=== PATIENT | female | born 1965 | race Caucasian/White ===

== ENCOUNTER 2016-07-19 09:45 | Emergency (ER) | payer MEDICAID, OTHER ==
--- NOTE | 2016-07-19 10:26 | EDM.PDOC ---
ED HPI Trauma - General Chief Complaint: Lower Extremity Injury/Pain Stated Complaint: RE-CHECK L FOOT Time Seen by Provider: 07/19/16 10:01 Source: Reports: Patient History Limitations: Reports: No limitations - History of Present Illness INITIAL COMMENTS - FREE TEXT/NARRATIVE: The patient presents with left great toe pain. She fractured her great toe on Monday morning. She has been in a cam walker and she has crutches. She says the pain meds are not working. Occurred When: other (Monday) Occurred Where: home Method of Injury: fall Severity: severe Pain/Injury Location: Reports: lower extremity, left (Great toe) Consciousness: Reports: no loss of consciousness Associated Symptoms: Reports: no other symptoms Allergies/ADRs: Allergies ampicillin Allergy (Verified 07/19/16 09:52) Cannot Remember erythromycin base [Erythromycin Base] Allergy (Verified 07/19/16 09:52) Cannot Remember Penicillins Allergy (Verified 07/19/16 09:52) unknown Home Medications: Ambulatory Orders Aspirin [Halfprin] 81 mg PO DAILY 07/19/16 [Confirmed 07/19/16] HYDROmorphone HCl [Dilaudid] 2 mg PO Q6HR PRN #20 tablet 07/19/16 Hydrocodone/Acetaminophen [Hydrocodon-Acetaminophen 5-325] 5 - 325 mg PO Q6H PRN 07/19/16 [Confirmed 07/19/16] Past Medical History Other HEENT History: Dental History, "My teeth are getting bad." Cardiovascular History: Reports: High cholesterol, [place], Pacemaker, Other (see below) Other Cardiovascular History: [place] five yrs ago. Gastrointestinal History: Reports: Other (see below) Other Gastrointestinal History: Crohn's disease. 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 - Past Surgical History GI Surgical History: Reports: Cholecystectomy, Other (see below) Other GI Surgeries/Procedures: part of intestines removed. Female Surgical History: Reports: section, Hysterectomy Musculoskeletal Surgical History: Reports: Other (see below) Other Musculoskeletal Surgeries/Procedures:: wrist surgery. Social & Family History - Tobacco Use Smoking Status *Q: Current Every Day Smoker Years of Tobacco use: 38 Packs/Tins Daily: 0.5 Second Hand Smoke Exposure: No - Caffeine Use Caffeine Use: Reports: Coffee - Alcohol Use Days Per Week of Alcohol Use: 0 - Recreational Drug Use Recreational Drug Use: No Review of Systems - Review of Systems Review Of Systems: See Below Constitutional: Reports: no symptoms Eyes: Reports: no symptoms Ears: Reports: no symptoms Nose: Reports: no symptoms Mouth/Throat: Reports: no symptoms Respiratory: Reports: No Symptoms Cardiovascular: Reports: no symptoms GI/Abdominal: Reports: No symptoms Genitourinary: Reports: no symptoms Musculoskeletal: Reports: other (Left foot pain and left great toe pain) Trauma Exam - Physical Exam Exam: See Below Exam Limited By: No limitations General Appearance: Reports: alert, no apparent distress Head: Reports: atraumatic, normocephalic Ears: Reports: normal external exam Nose: Reports: normal inspection Respiratory Exam: Reports: no respiratory distress Extremities: Reports: other (Pain upon palpatin to the left foot mostly at the base of the greath toe with ecchymosis and good sensation and capillary refill distally.) Course - Vital Signs Last Recorded V/S: Last Vital Signs Temp 97.0 F 07/19/16 09:45 Pulse 87 07/19/16 09:45 Resp 16 07/19/16 09:45 BP 124/84 07/19/16 09:45 Pulse Ox 100 07/19/16 09:45 - Re-Assessments/Exams Free Text/Narrative Re-Assessment/Exam: 07/19/16 10:24 I will give her some dilaudid. Departure - Departure Time of Disposition: 10:25 Disposition: Home, Self-Care 01 Condition: good Clinical Impression: Fracture of left great toe Qualifiers: Encounter type: subsequent encounter Fracture type: closed Phalanx: proximal Fracture alignment: nondisplaced Fracture healing: with routine healing Qualified Code(s): S92.415D - Nondisplaced fracture of proximal phalanx of left great toe, subsequent encounter for fracture with routine healing Prescriptions: HYDROmorphone HCl [Dilaudid] 2 mg PO Q6HR PRN #20 tablet PRN Reason: Pain Referrals: Cesar Miguel MD [Primary Care Provider] - Forms: ED Department Discharge Additional Instructions: Take the dilaudid for pain. Keep off of your foot. Follow up with your doctor as scheduled.
== END 2016-07-19 10:38 | disposition home or self-care (01) ==
LOC: JD.ED 09:45
CPT/HCPCS: 99283

== ENCOUNTER 2016-08-03 13:12 | Emergency (ER) | payer MEDICAID, OTHER ==
[2016-08-03 13:26] VITALS: BP 132/98
--- NOTE | 2016-08-03 13:38 | EDM.PDOC ---
ED HPI Trauma - General Chief Complaint: Lower Extremity Injury/Pain Stated Complaint: LEFT LEG INJURY RE-CHECK Time Seen by Provider: 08/03/16 13:39 Source: Reports: Patient, RN notes reviewed - History of Present Illness INITIAL COMMENTS - FREE TEXT/NARRATIVE: 51-year-old female presents to the ED for review of fracture left great toe. Initial injury occurred when she stubbed it around the 14 of July. She's been placed in a Cam Walker and has been walking on it. She states over the weekend started to experience increased sharp stabbing burning pain at the fracture site that radiates up the leg. Does not remember stubbing it or injuring it in any way recently.. She is supposed to followup with Dr. Davidson but has yet to see him. Symptom Onset Date: 07/17/16 (Dr. james is identified fracture) Occurred When: other (2 weeks ago) Occurred Where: home Method of Injury: direct blow Severity: moderate (Stubbed her toe.) Pain/Injury Location: Reports: lower extremity, left (Left great toe) Associated Symptoms: Reports: no other symptoms, trouble walking (Currently in a CAM walker) Allergies/ADRs: Allergies ampicillin Allergy (Verified 08/03/16 13:26) Cannot Remember erythromycin base [Erythromycin Base] Allergy (Verified 08/03/16 13:26) Cannot Remember Penicillins Allergy (Verified 08/03/16 13:26) unknown Home Medications: Ambulatory Orders Aspirin [Halfprin] 81 mg PO DAILY 07/19/16 [Confirmed 08/03/16] HYDROmorphone [Dilaudid] 2 mg PO Q6H #16 tablet 08/03/16 Past Medical History HEENT History: Reports: None Other HEENT History: Dental History, "My teeth are getting bad." Cardiovascular History: Reports: High cholesterol, [place], Pacemaker, Other (see below) Other Cardiovascular History: [place] five yrs ago. Gastrointestinal History: Reports: Other (see below) Other Gastrointestinal History: Crohn's disease. 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 - Past Surgical History GI Surgical History: Reports: Cholecystectomy, Other (see below) Other GI Surgeries/Procedures: part of intestines removed. Female Surgical History: Reports: section, Hysterectomy Musculoskeletal Surgical History: Reports: Other (see below) Other Musculoskeletal Surgeries/Procedures:: wrist surgery. Social & Family History - Tobacco Use Smoking Status *Q: Current Every Day Smoker Years of Tobacco use: 35 Packs/Tins Daily: 0.5 Second Hand Smoke Exposure: No - Caffeine Use Caffeine Use: Reports: Coffee - Alcohol Use Days Per Week of Alcohol Use: 0 - Recreational Drug Use Recreational Drug Use: No - Living Situation & Occupation Occupation: unemployed Review of Systems - Review of Systems Review Of Systems: See Below Constitutional: Reports: no symptoms Eyes: Reports: no symptoms Ears: Reports: no symptoms Nose: Reports: no symptoms Mouth/Throat: Reports: no symptoms Respiratory: Reports: No Symptoms Cardiovascular: Reports: no symptoms GI/Abdominal: Reports: No symptoms Genitourinary: Reports: no symptoms Musculoskeletal: Reports: no symptoms Skin: Reports: no symptoms, change in color Psychiatric: Reports: no symptoms Trauma Exam - Physical Exam Exam: See Below Exam Limited By: No limitations General Appearance: Reports: alert, WD/WN, no apparent distress Extremities: Reports: other (There still ecchymoses of the MTP joint of the great toe left side. She is pain on movement of the joint. Sensation appears to be intact. The toe is well aligned.) Neurologic: Reports: alert, normal mood/affect, oriented x 3, other ( Hyperalgesia which appears to be neurogenic pain dorsal toe.) Skin: Reports: Normal color, Warm/dry Course - Vital Signs Last Recorded V/S: Last Vital Signs Temp 36.7 C 08/03/16 13:21 Pulse 93 08/03/16 13:21 Resp 16 08/03/16 13:21 BP 132/98 H 08/03/16 13:21 Pulse Ox 98 08/03/16 13:21 - Orders/Labs/Meds Orders: Active Orders 24 hr Category Date Time Status Toes Great Toe Lt TA [CR] Stat Exams 08/03/16 13:31 Taken - Radiology Interpretation Free Text/Narrative:: 51-year-old female presents to the ED for reevaluation of a fracture of her left great toe. Injury occurred almost 3 weeks ago. Spent in a Cam Walker and crutch walking since that time. Over the weekend she developed increasing pain sharp stabbing burning that shoots up the leg from the great toe. This suggests a neurogenic component to the pain. Therefore it is important that she starts to begin to move the joints to prevent reflex synthetic dystrophy. She is to follow up Dr. Vivar later this week. An x-ray of the toe was carried out and reveals the fracture to be healing very well. There is no malalignment or malposition. She'll continue in cam walker until cc Dr. Vivar.Given Hydromorphone tabs 2mg -- 1/2 to one tablet Q 6hrs prn for pain releif x 16 tabs. Departure - Departure Time of Disposition: 14:01 Disposition: Home, Self-Care 01 Condition: fair Clinical Impression: Fracture of toe, closed Qualifiers: Encounter type: subsequent encounter Toe: great toe Phalanx: proximal Fracture alignment: nondisplaced Laterality: left Fracture healing: with routine healing Qualified Code(s): S92.415D - Nondisplaced fracture of proximal phalanx of left great toe, subsequent encounter for fracture with routine healing Prescriptions: HYDROmorphone [Dilaudid] 2 mg PO Q6H #16 tablet Referrals: Cesar Miguel MD [Primary Care Provider] - Forms: ED Department Discharge Additional Instructions: Evaluation of fracture of proximal phalanx left great toe carried out in the ED. Increasing pain in the area which appears to be neurogenic with sharp shooting stabbing pain. This is a lot as part of the healing phase once the swelling is going down and the nerve starts to act up or come back to life. The x-ray shows that the fracture is healing very well without any displacement. Continue CAM walker boot and pain medication as needed. Followup with Dr. Vivar as planned. Copy of the x-rays provided to you today for Dr. Davidson's review - My Orders Last 24 Hours: My Active Orders 08/03/16 13:31 Toes Great Toe Lt TA [CR] Stat - Assessment/Plan Last 24 Hours: My Active Orders 08/03/16 13:31 Toes Great Toe Lt TA [CR] Stat
--- NOTE | 2016-08-04 11:46 | CR ---
Left first toe: Four views of the left toe were obtained. Slight lucent line seen within the proximal phalanx of the first digit. Findings may represent a subacute nondisplaced fracture. Minimal degenerative change is noted within the first MTP joint. No additional abnormality is seen. Impression: 1. Possible nondisplaced subacute fracture within the proximal phalanx of the first digit. 2. Other incidental finding. Diagnostic code #2
== END 2016-08-03 14:15 | disposition home or self-care (01) ==
LOC: JD.ED 13:12
DX: S92.415D Nondisplaced fracture of proximal phalanx of left great toe, subsequent encounter for fracture with routine healing (principal); E78.00 Pure hypercholesterolemia, unspecified; I25.2 Old myocardial infarction; F41.9 Anxiety disorder, unspecified; Z86.2 Personal history of diseases of the blood and blood-forming organs and certain disorders involving the immune mechanism; F17.210 Nicotine dependence, cigarettes, uncomplicated; Z88.1 Allergy status to other antibiotic agents; Z88.0 Allergy status to penicillin; Z90.49 Acquired absence of other specified parts of digestive tract; Z90.710 Acquired absence of both cervix and uterus; X58.XXXD Exposure to other specified factors, subsequent encounter; Y92.009 Unspecified place in unspecified non-institutional (private) residence as the place of occurrence of the external cause
CPT/HCPCS: 73660-26-TA; 73660-TA; 99283

== ENCOUNTER 2016-08-05 17:48 | Emergency (ER) | payer MEDICAID, OTHER ==
[2016-08-05 17:58] VITALS: BP 123/79
--- NOTE | 2016-08-05 18:44 | EDM.PDOC ---
ED HPI Trauma - General Chief Complaint: Lower Extremity Injury/Pain Stated Complaint: LEFT LEG INJURY Time Seen by Provider: 08/05/16 17:53 Source: Reports: Patient, RN notes reviewed, Other ([facility] [place] P[facility]i) History Limitations: Reports: No limitations - History of Present Illness INITIAL COMMENTS - FREE TEXT/NARRATIVE: The patient states that she fractured her left great toe 07/14/2016. She was seen at the [facility] and placed into a Cam Walker boot. Review of the [place] PMP[place] indicates that the patient was prescribed 10 tablets of [place] 5/[address] Miguel. She states that she subsequently followed up with Dr. Vivar, an Orthopedic Surgeon, on either 07/15/2016 or 07/16/2016. He kept the patient in a Cam Walker boot. The patient was then seen in this ED 07/19/2016, stating that the pain medications that she had been prescribed were not working. The patient was prescribed 20 tablets of Dilaudid 2 mg. The [place] indicates that the patient subsequently received a prescription for 20 tablets of Dilaudid 2 mg on 07/25/2016, and another prescription for 20 tablets of the same on 07/29/2016, both per Dr. Miguel. The patient was then seen in this ED again on 08/03/2016. Radiographs of the toe indicated that the fracture was healing. She was prescribed 16 more tablets of Dilaudid 20 mg. The patient then followed up with Dr. Vivar the following day = yesterday, . He apparently repeated radiographs of the toe and wrapped the toe in addition to keeping the patient in the CAM walker boot. He then prescribed 25 tablets of Dilaudid 2 mg. The patient states that when she went to fill that prescription today, she was told by the pharmacist that Medicare has locked the patient in with Dr. Miguel as a single prescriber for opioids, and since it was after hours, the only way she could get a prescription for an opioid would be if she went to the ED. I [facility], who tells me that Dr. Miguel has recently been locked in as the patient's single prescriber, and that Medicaid therefore rejected the prescription from Dr. Vivar. He stated that the only way that the patient could fill a prescription from a prescriber other than Dr. Miguel would be to get a release from Medicaid, however, Medicaid is closed for the weekend. A prescription from [place] would therefore not be able to be filled. Allergies/ADRs: Allergies ampicillin Allergy (Verified 08/05/16 17:53) Cannot Remember erythromycin base [Erythromycin Base] Allergy (Verified 08/05/16 17:53) Cannot Remember Penicillins Allergy (Verified 08/05/16 17:53) unknown Home Medications: Ambulatory Orders Aspirin [Halfprin] 81 mg PO DAILY 07/19/16 [Confirmed 08/05/16] HYDROmorphone [Dilaudid] 2 mg PO Q6H #16 tablet 08/03/16 [Confirmed 08/05/16] Past Medical History Other HEENT History: Dental History, "My teeth are getting bad." Cardiovascular History: Reports: High cholesterol Gastrointestinal History: Reports: Inflammatory bowel disease (Crohn disease) Genitourinary History: Reports: Renal calculus 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 Gastric pacer.) Female Surgical History: Reports: section (x 3), Hysterectomy Musculoskeletal Surgical History: Reports: ORIF (left wrist), Shoulder surgery ( left, open) Social & Family History - Tobacco Use Smoking Status *Q: Current Every Day Smoker Years of Tobacco use: 30 Packs/Tins Daily: 0.5 Packs/Tins Daily Comment: Down from 1 ppd - Caffeine Use Caffeine Use: Reports: Coffee - Alcohol Use Alcohol Use History: No Days Per Week of Alcohol Use: 0 - Recreational Drug Use Recreational Drug Use: Yes Drug Use in Last 12 Months: Yes Recreational Drug Type: Reports: Dilaudid, Oxycodone - Living Situation & Occupation Living situation: Reports: , with family (4 kids) Occupation: unemployed Review of Systems - Review of Systems Review Of Systems: See Below Constitutional: Reports: no symptoms Eyes: Reports: no symptoms Ears: Reports: no symptoms Nose: Reports: no symptoms Mouth/Throat: Reports: no symptoms Respiratory: Reports: No Symptoms Cardiovascular: Reports: no symptoms GI/Abdominal: Reports: No symptoms Genitourinary: Reports: no symptoms Musculoskeletal: Reports: no symptoms Skin: Reports: no symptoms Neurological: Reports: No Symptoms Psychiatric: Reports: no symptoms Trauma Exam - Physical Exam Exam: See Below Exam Limited By: No limitations General Appearance: Reports: alert, WD/WN, no apparent distress Extremities: Reports: other (Left great toe wrapped in Curlex. Left foot in a Cam Walker boot.) Course - Vital Signs Last Recorded V/S: Last Vital Signs Temp 36.3 C 08/05/16 17:54 Pulse 98 08/05/16 17:54 Resp 16 08/05/16 17:54 BP 123/79 08/05/16 17:54 Pulse Ox 98 08/05/16 17:54 - Re-Assessments/Exams Free Text/Narrative Re-Assessment/Exam: 08/05/16 18:35 The patient is consuming large quantities of oral Dilaudid over 3 weeks after a toe fracture that is healing. This is far in excess of appropriate usage, and I confronted the patient about that. The patient acknowledges that she previously had a heavy addiction to opioids, but that she was able to stop using about 3 years ago, and feels that her current usage is not abusive, and that she can stop any time. She feels that because these have been prescribed, they must be acceptable. She acknowledges, however, that Dr. Vivar was not aware of her earlier prescriptions for Dilaudid when he prescribed 25 tablets yesterday. Unfortunately, I do not feel that I made significant inroads into her self- realization of her abusive consumption, hevertheless, as I am not the patient's single prescriber, I cannot refill her Dilaudid, even if I wanted to. The patient will run out of Dilaudid today, if she has not done so already, and I strongly recommended that she switch to ibuprofen and not seek any future opioid prescriptions. Departure - Departure Time of Disposition: 18:39 Disposition: Home, Self-Care 01 Condition: good Clinical Impression: Drug-seeking behavior Instructions: Finding Treatment for Addiction Referrals: Cesar Miguel MD [Primary Care Provider] - Andrew Vivar II DPM [Physician] - Forms: ED Department Discharge Additional Instructions: You were seen in the emergency room in an attempt to have a prescription for Dilaudid, written by Dr. Vivar, validated. Records indicate that this is the 6th prescription for an opioid written since you broke your toe just 3 weeks ago. This is far in excess of appropriate usage. We STRONGLY recomend you not seek or fill any more opioid prescriptions once your current supply has run out. We STRONGLY recommend you seek professional help regarding your opioid usage before this gets out of control. Followup with Dr. Vivar and Dr. Miguel as needed. If any other problems, please do not hesitate to return to the ER.
== END 2016-08-05 18:40 | disposition home or self-care (01) ==
LOC: JD.ED 17:48
DX: Z76.5 Malingerer [conscious simulation] (principal); E78.00 Pure hypercholesterolemia, unspecified; D50.9 Iron deficiency anemia, unspecified; F17.210 Nicotine dependence, cigarettes, uncomplicated; Z85.72 Personal history of non-Hodgkin lymphomas; Z90.49 Acquired absence of other specified parts of digestive tract; Z79.82 Long term (current) use of aspirin; Z88.0 Allergy status to penicillin; Z88.1 Allergy status to other antibiotic agents; Z90.710 Acquired absence of both cervix and uterus; Z98.890 Other specified postprocedural states
CPT/HCPCS: 99282; 99283

== ENCOUNTER 2016-08-23 12:58 | Emergency (ER) | payer MEDICAID ==
[2016-08-23 13:13] VITALS: BP 143/98
--- NOTE | 2016-08-23 13:41 | EDM.PDOC ---
ED HPI Trauma - General Chief Complaint: Lower Extremity Injury/Pain Stated Complaint: LEFT FOOT SWOLLEN AND PAINFUL Time Seen by Provider: 08/23/16 13:15 Source: Reports: Patient History Limitations: Reports: No limitations - History of Present Illness INITIAL COMMENTS - FREE TEXT/NARRATIVE: The patient presents with left great toe pain. She fractured her toe over a month ago. She saw Dr Vivar here at [place] and also Dr Barnes in [place]. They think there is something wrong with the joint. Dr Miguel is her primary care doctor and he is out of town for a few days. She is almost out of her dilaudid. Occurred When: other (Over 1 month ago) Severity: moderate Pain/Injury Location: Reports: lower extremity, left (Great toe) Consciousness: Reports: no loss of consciousness Associated Symptoms: Reports: no other symptoms Allergies/ADRs: Allergies ampicillin Allergy (Verified 08/23/16 13:09) Cannot Remember erythromycin base [Erythromycin Base] Allergy (Verified 08/23/16 13:09) Cannot Remember Penicillins Allergy (Verified 08/23/16 13:09) unknown Home Medications: Ambulatory Orders Aspirin [Halfprin] 81 mg PO DAILY 07/19/16 [Confirmed 08/23/16] HYDROmorphone [Dilaudid] 2 mg PO Q6H #16 tablet 08/03/16 [Confirmed 08/23/16] HYDROmorphone HCl [Dilaudid] 2 mg PO Q6HR PRN #20 tablet 08/23/16 Past Medical History HEENT History: Reports: None Other HEENT History: Dental History, "My teeth are getting bad." Cardiovascular History: Reports: High cholesterol Other Cardiovascular History: [place] five yrs ago. Gastrointestinal History: Reports: Inflammatory bowel disease Other Gastrointestinal History: Crohn's disease. 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 - Past Surgical History GI Surgical History: Reports: Cholecystectomy Female Surgical History: Reports: section, Hysterectomy Musculoskeletal Surgical History: Reports: ORIF, Shoulder surgery Social & Family History - Tobacco Use Smoking Status *Q: Current Every Day Smoker Years of Tobacco use: 30 Packs/Tins Daily: 1 Second Hand Smoke Exposure: No - Caffeine Use Caffeine Use: Reports: Coffee - Alcohol Use Days Per Week of Alcohol Use: 0 - Recreational Drug Use Recreational Drug Use: No Drug Use in Last 12 Months: Yes Recreational Drug Type: Reports: Dilaudid, Oxycodone - Living Situation & Occupation Living situation: Reports: , with family (4 kids) Occupation: unemployed Review of Systems - Review of Systems Review Of Systems: See Below Constitutional: Reports: no symptoms Eyes: Reports: no symptoms Ears: Reports: no symptoms Nose: Reports: no symptoms Mouth/Throat: Reports: no symptoms Respiratory: Reports: No Symptoms Cardiovascular: Reports: no symptoms GI/Abdominal: Reports: No symptoms Genitourinary: Reports: no symptoms Musculoskeletal: Reports: other (Left great toe pain) Trauma Exam - Physical Exam Exam: See Below Exam Limited By: No limitations General Appearance: Reports: alert, no apparent distress Head: Reports: atraumatic, normocephalic Ears: Reports: normal external exam Nose: Reports: normal inspection Respiratory Exam: Reports: no respiratory distress Extremities: Reports: other (Pain upon palpation to the left great toe. Good sensation and normal capillary refill) Course - Vital Signs Last Recorded V/S: Last Vital Signs Temp 97.9 F 08/23/16 13:09 Pulse 96 08/23/16 13:09 Resp 16 08/23/16 13:09 BP 143/98 H 08/23/16 13:09 Pulse Ox 98 08/23/16 13:09 Departure - Departure Time of Disposition: 13:45 Disposition: Home, Self-Care 01 Condition: good Clinical Impression: Fracture of left great toe Qualifiers: Encounter type: subsequent encounter Fracture type: closed Phalanx: proximal Fracture alignment: nondisplaced Fracture healing: with routine healing Qualified Code(s): S92.415D - Nondisplaced fracture of proximal phalanx of left great toe, subsequent encounter for fracture with routine healing Prescriptions: HYDROmorphone HCl [Dilaudid] 2 mg PO Q6HR PRN #20 tablet PRN Reason: Pain Referrals: Cesar Miguel MD [Primary Care Provider] - 1 Week Forms: ED Department Discharge Additional Instructions: Take your medication as prescribed. Follow up with Dr Miguel.
== END 2016-08-23 14:09 | disposition home or self-care (01) ==
LOC: JD.ED 12:58
DX: S92.415D Nondisplaced fracture of proximal phalanx of left great toe, subsequent encounter for fracture with routine healing (principal); E78.00 Pure hypercholesterolemia, unspecified; F41.9 Anxiety disorder, unspecified; D50.9 Iron deficiency anemia, unspecified; Z90.49 Acquired absence of other specified parts of digestive tract; Z90.710 Acquired absence of both cervix and uterus; Z98.890 Other specified postprocedural states; Z85.72 Personal history of non-Hodgkin lymphomas; F17.210 Nicotine dependence, cigarettes, uncomplicated; Z79.82 Long term (current) use of aspirin; Z88.0 Allergy status to penicillin; Z88.1 Allergy status to other antibiotic agents; X58.XXXD Exposure to other specified factors, subsequent encounter
CPT/HCPCS: 99283

== ENCOUNTER 2016-08-26 12:00 | Emergency (ER) | payer MEDICAID ==
[2016-08-26 12:16] VITALS: BP 107/79
--- NOTE | 2016-08-26 13:04 | EDM.PDOC ---
ED HPI GENERAL MEDICAL PROBLEM - General Chief Complaint: Lower Extremity Injury/Pain Stated Complaint: LT FOOT PAIN Time Seen by Provider: 08/26/16 12:50 Source of Information: Reports: Patient, Old records (recent ER visits), Other ( [facility], [facility]) History Limitations: Reports: No limitations - History of Present Illness INITIAL COMMENTS - FREE TEXT/NARRATIVE: 51-year-old female presents for a refill of her pain medication. Patient reports on July 14, 2016 she got up in the middle of the night to someone knocking on her door. She states she missed the last step and fell down the last step landing on her flexed toes. She reports immediate pain. She was seen at the walk in clinic that day. Diagnosed with a fracture of her left great toe. She has been seeing Dr. Vivar and Dr. Miguel since the fracture. She thought she had an appointment Dr. Vivar today, however, she was actually scheduled for a week from today. She states that they're currently questioning if she should needs a cast as her pain is not improving. She states that today she took some Advil. She said she did try walking on the foot without the boot as encouraged, as encouraged to do so by Dr. Vivar. She has also been utilizing crutches. Last visit to Dr. Vivar was about 2 or 3 weeks ago. Patient reports she only has 3 or 4 dilaudid left and will likely need 1 or 2 today. Reports her PCP is out of town. She is requesting more dilaudid today. Review of the patient's records show four ER visits within the last 6 weeks, 08-23, 08-05-16, 08-03-16 and 07-19-16 for the same problem. Last x-ray was on which showed a healing fracture. Patient was searched on the [place] prescription drug registry. She has received 19 prescriptions from 4 different prescribers within the last year for controlled substances. Her most recent prescription was written on 08-23-16 it was for Dilaudid 2 mg tabs #20. Location: Reports: lower extremity, left (left foot) Left Face Pain Score (Numeric/FACES): 5 - Related Data Allergies Allergy/AdvReac Type Severity Reaction Status Date / Time ampicillin Allergy Cannot Verified 08/23/16 13:09 Remember erythromycin base Allergy Cannot Verified 08/23/16 13:09 [Erythromycin Base] Remember Penicillins Allergy unknown Verified 08/23/16 13:09 Home Meds: Home Meds Aspirin [Halfprin] 81 mg PO DAILY 07/19/16 [History] HYDROmorphone [Dilaudid] 2 mg PO Q6H #16 tablet 08/03/16 [Rx] HYDROmorphone HCl [Dilaudid] 2 mg PO Q6HR PRN #20 tablet 08/23/16 [Rx] Past Medical History HEENT History: Reports: None Other HEENT History: Dental History, "My teeth are getting bad." Cardiovascular History: Reports: High cholesterol Other Cardiovascular History: [place] five yrs ago. Gastrointestinal History: Reports: Inflammatory bowel disease Other Gastrointestinal History: Crohn's disease. 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 - Past Surgical History GI Surgical History: Reports: Cholecystectomy Female Surgical History: Reports: section, Hysterectomy Musculoskeletal Surgical History: Reports: ORIF, Shoulder surgery Social & Family History - Tobacco Use Smoking Status *Q: Current Every Day Smoker Years of Tobacco use: 30 Packs/Tins Daily: 0.5 Second Hand Smoke Exposure: No - Caffeine Use Caffeine Use: Reports: Coffee, Soda - Alcohol Use Days Per Week of Alcohol Use: 0 - Recreational Drug Use Recreational Drug Use: No Drug Use in Last 12 Months: Yes Recreational Drug Type: Reports: Dilaudid, Oxycodone - Living Situation & Occupation Living situation: Reports: , with family (4 kids) Occupation: unemployed ED ROS GENERAL - Review of Systems Review Of Systems: ROS reveals no pertinent complaints other than HPI. ED EXAM, GENERAL - Physical Exam Exam: See Below Exam Limited By: No limitations General Appearance: alert, WD/WN, no apparent distress Respiratory/Chest: no respiratory distress Extremities: other (left lower leg is in a walking boot; left great toe is wrapped) Neurological: alert, oriented, normal cognition Psychiatric: normal affect, normal mood Skin Exam: Warm, Dry, Normal color Course - Vital Signs Last Recorded V/S: Last Vital Signs Temp 36.4 C 08/26/16 12:15 Pulse 99 05/05/17 12:15 Resp 20 08/26/16 12:15 BP 107/79 08/26/16 12:15 Pulse Ox 97 08/26/16 12:15 - Re-Assessments/Exams Free Text/Narrative Re-Assessment/Exam: 08/26/16 13:15 I spoke with [facility]. Dr. Miguel is indeed out. Dr. Vivar was in the OR earlier today but is seeing patients this afternoon. The on-call physician is also filling prescription refills for Dr. miguel. I spoke with the patient's pharmacy, [facility], she is able to receive prescriptions for narcotics from anyone, however, it will only be covered by insurance if filled by . I discussed this with the patient. I informed her that it is our ER policy that we do not refill narcotic pain medications for chronic problems. she has been in the ER 4 times for this problem . This a chronic problem she needs to see her primary care provider or Dr. Vivar for refills on her medication. Advised her to contact Dr. Davidson or the on-call physician for for refills. I am unable to provide her any refills for this chronic problem. Will discharge home. Discharge instructions as documented. Departure - Departure Time of Disposition: 13:17 Disposition: Home, Self-Care 01 Condition: good Clinical Impression: Fracture of toe, closed Qualifiers: Encounter type: subsequent encounter Toe: great toe Phalanx: proximal Fracture alignment: nondisplaced Laterality: left Fracture healing: with routine healing Qualified Code(s): S92.415D - Nondisplaced fracture of proximal phalanx of left great toe, subsequent encounter for fracture with routine healing Instructions: Toe Fracture, [id number] Referrals: Cesar Miguel MD [Primary Care Provider] - Andrew Vivar II, DPM [Physician] - Forms: ED Department Discharge Additional Instructions: Unfortunately, we are unable to refill narcotic medications for chronic problems in the ER. I recommend you contact Dr. Vivar for referral of your pain medications were taking or talk with the on-call physician covering for Dr. Miguel. Please return to ER should your symptoms change or worsen.
== END 2016-08-26 13:25 | disposition home or self-care (01) ==
LOC: JD.ED 12:00
DX: S92.415D Nondisplaced fracture of proximal phalanx of left great toe, subsequent encounter for fracture with routine healing (principal); W10.8XXD Fall (on) (from) other stairs and steps, subsequent encounter; E78.00 Pure hypercholesterolemia, unspecified; I25.2 Old myocardial infarction; F41.9 Anxiety disorder, unspecified; D50.9 Iron deficiency anemia, unspecified; F17.210 Nicotine dependence, cigarettes, uncomplicated; Z90.49 Acquired absence of other specified parts of digestive tract; Z85.72 Personal history of non-Hodgkin lymphomas; Z79.82 Long term (current) use of aspirin; Z88.1 Allergy status to other antibiotic agents; Z90.710 Acquired absence of both cervix and uterus; Z98.890 Other specified postprocedural states; Z88.0 Allergy status to penicillin
CPT/HCPCS: 99283

== ENCOUNTER 2016-08-27 07:49 | Emergency (ER) | payer MEDICAID ==
[2016-08-27 08:03] VITALS: BP 120/81
--- NOTE | 2016-08-27 08:13 | EDM.PDOC ---
ED HPI Trauma - General Chief Complaint: Lower Extremity Injury/Pain Stated Complaint: LT FOOT PAIN Time Seen by Provider: 08/27/16 08:01 Source: Reports: Patient, RN notes reviewed - History of Present Illness INITIAL COMMENTS - FREE TEXT/NARRATIVE: 51-year-old female comes in with right foot pain. She suffered fracture of her right large toe but 6-8 weeks ago. She had been in a boot and on crutches and now is ambulatory. She states she has increased pain of the great toe since starting to walk on it. She was seen here in the ED [address] Stark prescribed 20 Dilaudid take 2 mg 4 times a day if needed for severe pain. Apparently she did present to the ED yesterday as well. As it was a week day and she had just been prescribed a few days prior she was advised to obtain further medication as needed to her clinic providers. There has been no further injury. Her pain is in the mid area of her right great toe with some radiation to the dorsum of her foot. No fever or chills. Allergies/ADRs: Allergies ampicillin Allergy (Verified 08/27/16 08:03) Cannot Remember erythromycin base [Erythromycin Base] Allergy (Verified 08/27/16 08:03) Cannot Remember Penicillins Allergy (Verified 08/27/16 08:03) unknown Home Medications: Ambulatory Orders Aspirin [Halfprin] 81 mg PO DAILY 07/19/16 [Confirmed 08/23/16] HYDROmorphone [Dilaudid] 2 mg PO Q6H #16 tablet 08/03/16 [Confirmed 08/23/16] HYDROmorphone HCl [Dilaudid] 2 mg PO Q6HR PRN #20 tablet 08/23/16 HYDROmorphone [Dilaudid] 2 mg PO Q8H #10 tablet 08/27/16 Past Medical History HEENT History: Reports: None Other HEENT History: Dental History, "My teeth are getting bad." Cardiovascular History: Reports: High cholesterol Other Cardiovascular History: [place] five yrs ago. Gastrointestinal History: Reports: Inflammatory bowel disease Other Gastrointestinal History: Crohn's disease. 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 - Past Surgical History GI Surgical History: Reports: Cholecystectomy Female Surgical History: Reports: section, Hysterectomy Musculoskeletal Surgical History: Reports: ORIF, Shoulder surgery Social & Family History - Family History Family Medical History: Noncontributory - Tobacco Use Smoking Status *Q: Current Every Day Smoker Years of Tobacco use: 30 Packs/Tins Daily: 0.5 Second Hand Smoke Exposure: No - Caffeine Use Caffeine Use: Reports: Coffee - Alcohol Use Days Per Week of Alcohol Use: 0 - Recreational Drug Use Recreational Drug Use: No Drug Use in Last 12 Months: Yes Recreational Drug Type: Reports: Dilaudid, Oxycodone - Living Situation & Occupation Living situation: Reports: , with family (4 kids) Occupation: unemployed Review of Systems - Review of Systems Review Of Systems: See Below Constitutional: Denies: chills, fever Respiratory: Denies: Shortness of Breath Cardiovascular: Denies: chest pain GI/Abdominal: Denies: Nausea, Vomiting Musculoskeletal: Reports: foot pain (Right foot), joint pain (Right great toe) Skin: Reports: no symptoms Trauma Exam - Physical Exam Exam: See Below General Appearance: Reports: alert, no apparent distress Head: Reports: atraumatic Throat/Mouth: Reports: Normal inspection Neck: Reports: full range of motion Respiratory Exam: Reports: no respiratory distress, lungs clear, normal breath sounds Cardiovascular: Reports: regular rate, rhythm Extremities: Reports: tenderness (There is some tenderness of the right great toe IP joint area, there is very mild erythema of the great toe. No appreciable swelling at this time. There is no erythema warmth or swelling of her foot she does have mild tenderness mid dorsum of the right foot. Foot otherwise completely nontender ankle is without swelling or tenderness, leg is nontender) Course - Vital Signs Last Recorded V/S: Last Vital Signs Temp 98.2 F 08/27/16 07:59 Pulse 98 08/27/16 07:59 Resp 16 08/27/16 07:59 BP 120/81 08/27/16 07:59 Pulse Ox 99 08/27/16 07:59 - Re-Assessments/Exams Free Text/Narrative Re-Assessment/Exam: 08/27/16 12:49. Because it is Monday and her regular provider is out of town, I did write a prescription for 10 tablets 2 mg strength Dilaudid take one 3 times a day if needed for severe pain. When she did present to her pharmacist the pharmacist did call me wanting to be sure I was aware that she been prescribed a quantity of 20 tablets 4 days ago which if taken as directed was a 5 day supply. Based on that information pharmacist on duty and myself have agreed that since she needs to wait until tomorrow before filling the prescription that I did write out for her today. She called the ED almost immediately wondering what she was going to do for "pain". I had informed her verbally and with discharge instructions to work with ibuprofen and Tylenol, ice and elevation as needed and to take the Dilaudid only if needed for severe pain not controlled by the above measures. That information still applies. I informed her because she had been prescribed a 5 day supply of a very powerful narcotic that it is appropriate the pharmacist wait until tomorrow before filling the prescription I provided for her today. Her fracture to the best of my knowledge was about 6 weeks ago. This seems to be much more of a chronic pain and narcotic dependency issue with patient taking medication prescribed 4 days ago more frequently than prescribed to already be out. Departure - Departure Time of Disposition: 08:13 Disposition: Home, Self-Care 01 Clinical Impression: Foot pain Qualifiers: Laterality: right Qualified Code(s): M79.671 - Pain in right foot Prescriptions: HYDROmorphone [Dilaudid] 2 mg PO Q8H #10 tablet Referrals: Cesar Miguel MD [Primary Care Provider] - Forms: ED Department Discharge Additional Instructions: You were prescribed Dilaudid from Dr. Stark August 2 four days ago. It is not appropriate to be getting pain medication for chronic injury from the ED. Our pain management policy prohibits us from doing that other than emergency situations. I will prescribe 10 2 mg tablets this morning to get you through the weekend. It is expected that no further pain medication will be prescribed from the ER for this injury. That needs to come from your clinic providers. Followup with your clinic providers as needed, rest and elevate her foot as much as possible. Advil 600 mg 2-3 times daily with food will help you do better with this injury.
== END 2016-08-27 08:43 | disposition home or self-care (01) ==
LOC: JD.ED 07:49
DX: M79.671 Pain in right foot (principal); E78.00 Pure hypercholesterolemia, unspecified; F41.9 Anxiety disorder, unspecified; F17.210 Nicotine dependence, cigarettes, uncomplicated; Z88.0 Allergy status to penicillin; Z88.1 Allergy status to other antibiotic agents; Z79.82 Long term (current) use of aspirin; Z79.899 Other long term (current) drug therapy; Z90.710 Acquired absence of both cervix and uterus; Z90.49 Acquired absence of other specified parts of digestive tract
CPT/HCPCS: 99283

== ENCOUNTER 2016-09-01 11:03 | Emergency (ER) | payer MEDICAID ==
[2016-09-01] MEDS ORDERED: Ondansetron 4 MG Tab.DIS PO STA (11:53)
[2016-09-01] MEDS ORDERED: Naproxen 500 MG Tab PO ONE (11:53)
[2016-09-01] MEDS ORDERED: cloNIDine 0.1 MG Tab PO ONE (12:01)
--- NOTE | 2016-09-01 12:10 | EDM.PDOC ---
ED HPI GENERAL MEDICAL PROBLEM - General Chief Complaint: Lower Extremity Injury/Pain Stated Complaint: PAIN IN LEFT FOOT Time Seen by Provider: 09/01/16 11:24 Source of Information: Reports: Patient, Old records, RN notes reviewed, Other ( [place] PMP[place]) History Limitations: Reports: No Limitations - History of Present Illness INITIAL COMMENTS - FREE TEXT/NARRATIVE: The patient states that she believes she is withdrawing from Dilaudid. The patient states that she fractured her left great toe on 07/14/2016. She was seen at the [facility] and placed into a cam walker boot. She was prescribed 10 tablets of [place] 5/[address] Miguel. She subsequently followed up with Dr. Vivar, a Footwear Sales Associate, on 07/11/2016 or 07/16/2016. He kept the patient in a cam walker boot. She was then seen in this ED 07/19/2016, stating that the pain medications that she had been prescribed were not working. She was prescribed with tablets of Dilaudid 2 mg. She subsequently received prescriptions for 20 tablets of Dilaudid 2 mg on 2016, and another prescription for 20 tablets of the same on 07/29/2016, both per Dr. Miguel. She was seen in this ED again on 08/03/2016. Radiographs of the toe indicated that the fracture was healing. She was prescribed 16 additional tablets of Dilaudid 2 mg. She followed up with Dr. Vivar on 08/04/2016. He repeated radiographs of the toe and wrapped toe in addition to keeping the patient in the cam walker boot. He then prescribed 25 tablets of Dilaudid 2 mg. When the patient went to fill that prescription, she was told by the pharmacist that Medicare had locked the patient and with Dr. Miguel is a single prescriber for opioids, and that we could therefore not fill that prescription. She therefore was seen again, by me, on 08/05/2016. During that visit, I confronted the patient about my concerns of excessive and prolonged opioid use for a relatively minor injury. The patient acknowledged that she had a previous he had a heavy addiction to opioids, but that she was able to stop about 3 years ago, and felt that her current usage was not abusive , and that she could stop any time. I recommended that she switch to ibuprofen and not seek future opioid prescriptions. I also recommended that she seek professional help at [facility]. Records indicate that the patient was seen in this ED on 08/23/2016, and prescribed 20 additional tablets of Dilaudid 2 mg. She was seen in this ED again on 08/26/2016, however, the provider refused to prescribe any additional narcotics. She was seen in this ED again on 08/27/2016, and prescribed an additional 10 tablets of Dilaudid 2 mg. In a discussion with Dr. Miguel, he states that he had a long telephone conversation with the patient 2 days ago. He refused to prescribe additional narcotics, and is aware that Dr. Vivar has also refused to prescribe additional narcotics. The patient states that the last Dilaudid she took was 2 days ago, the evening of . She reports cold sweats, insomnia, generalized discomfort, and nausea, since last night. No vomiting, constipation, or diarrhea. She states that she has an appointment to see her psychiatrist this coming Monday09/07/2016, although acknowledges that she does not know if her psychiatrist has experienced in substance abuse. She will be starting physical therapy on 09/06/2016, and believes that she has an appointment to followup with Dr. Vivar in about 2 weeks. Left Feet Pain Score (Numeric/FACES): 5 - Related Data Allergies Allergy/AdvReac Type Severity Reaction Status Date / Time ampicillin Allergy Cannot Verified 08/27/16 08:03 Remember erythromycin base Allergy Cannot Verified 08/27/16 08:03 [Erythromycin Base] Remember Penicillins Allergy unknown Verified 08/27/16 08:03 Home Meds: Home Meds Aspirin [Halfprin] 81 mg PO DAILY 07/19/16 [History] Diazepam [Valium] 1 tab PO BEDTIME PRN #5 tablet 09/01/16 [Rx] Naproxen 500 mg PO Q12H PRN #20 tablet 09/01/16 [Rx] Ondansetron [Zofran ODT] 1 tab PO Q8H PRN #10 tab.dis 09/01/16 [Rx] cloNIDine [Catapres] 1 tab PO Q12HR PRN #10 tablet 09/01/16 [Rx] Past Medical History Cardiovascular History: Reports: High cholesterol Gastrointestinal History: Reports: Inflammatory bowel disease (Crohn disease) Genitourinary History: Reports: Renal calculus 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 Gastric pacer.) Female Surgical History: Reports: section (x 3), Hysterectomy Musculoskeletal Surgical History: Reports: ORIF (left wrist), Shoulder surgery ( left, open) Social & Family History - Family History Family Medical History: Noncontributory - Tobacco Use Smoking Status *Q: Current Every Day Smoker Years of Tobacco use: 30 Packs/Tins Daily: 1 Packs/Tins Daily Comment: Down from 1 ppd - Caffeine Use Caffeine Use: Reports: Coffee - Alcohol Use Alcohol Use History: No - Recreational Drug Use Recreational Drug Use: Yes Drug Use in Last 12 Months: Yes Recreational Drug Type: Reports: Dilaudid, Oxycodone - Living Situation & Occupation Living situation: Reports: , with family (4 kids) Occupation: unemployed Review of Systems - Review of Systems Review Of Systems: See Below Constitutional: Reports: No Symptoms Eyes: Reports: No Symptoms Ears: Reports: No Symptoms Nose: Reports: No Symptoms Mouth/Throat: Reports: No Symptoms Respiratory: Reports: No Symptoms Cardiovascular: Reports: No Symptoms GI/Abdominal: Reports: No Symptoms Genitourinary: Reports: No Symptoms Musculoskeletal: Reports: No Symptoms Skin: Reports: No Symptoms Neurological: Reports: No Symptoms Psychiatric: Reports: No Symptoms Trauma Exam - Physical Exam Exam: See Below Exam Limited By: No Limitations General Appearance: Reports: Alert, WD/WN, No Apparent Distress Head: Reports: Atraumatic, Normocephalic Eyes: Bilateral Eye: EOMI, Normal Inspection Ears: Reports: Normal External Exam, Hearing Grossly Normal Nose: Reports: Normal Inspection, No Blood Throat/Mouth: Reports: Normal Inspection, Normal Lips, Normal Voice, No Airway Compromise Neck: Reports: Full Range of Motion, Normal Inspection Respiratory Exam: Reports: No Respiratory Distress, Lungs Clear, Normal Breath Sounds Cardiovascular: Reports: Normal Peripheral Pulses, Regular Rate, Rhythm, No Gallop, No JVD, No Murmur, No Rub GI/Abdominal: Reports: Normal Bowel Sounds, Soft, Non-Tender, No Organomegaly, No Distention, No Abnormal Bruit, No Mass (Female) Exam: Deferred Rectal (Female) Exam: Deferred Back: Reports: Full Range of Motion, Normal Inspection Extremities: No Evidence of Injury, Normal Range of Motion Neurologic: Reports: No Motor/Sensory Deficits, Alert, Oriented x 3 Skin: Reports: Normal Color, Warm/Dry Course - Vital Signs Last Recorded V/S: Last Vital Signs Temp 36.3 C 09/01/16 11:26 Pulse 78 09/01/16 11:26 Resp 20 09/01/16 11:26 BP 159/103 H 09/01/16 12:37 Pulse Ox 99 09/01/16 11:26 - Orders/Labs/Meds Meds: Medications Discontinued Medications Generic Name Dose Route Start Last Admin Trade Name Kari PRN Reason Stop Dose Admin Clonidine HCl 0.1 mg 09/01/16 12:01 09/01/16 12:37 Catapres PO 09/01/16 12:02 0.1 mg ONETIME ONE Administration Naproxen 500 mg 09/01/16 11:53 09/01/16 12:37 Naprosyn PO 09/01/16 11:54 500 mg ONETIME ONE Administration Ondansetron HCl 4 mg 09/01/16 11:53 09/01/16 12:37 Zofran Odt PO 09/01/16 11:54 4 mg ONETIME STA Administration - Re-Assessments/Exams Free Text/Narrative Re-Assessment/Exam: 09/01/16 12:04 I agree with the patient that she is withdrawing from Dilaudid. For today's purposes, we will treat the patient's individual symptoms with naproxen 500 mg, Zosyn 4 mg, and clonidine 0.1 mg. The patient has agreed to go from here to [facility], and has agreed for me to forward our notes to them. I will prescribe naproxen, Zofran, clonidine, and Valium. Departure - Departure Time of Disposition: 12:05 Disposition: Home, Self-Care 01 Condition: fair Clinical Impression: Opioid withdrawal - Discharge Information Prescriptions: cloNIDine [Catapres] 1 tab PO Q12HR PRN #10 tablet PRN Reason: Agitation Diazepam [Valium] 1 tab PO BEDTIME PRN #5 tablet PRN Reason: Insomnia Naproxen 500 mg PO Q12H PRN #20 tablet PRN Reason: Pain Ondansetron [Zofran ODT] 1 tab PO Q8H PRN #10 tab.dis PRN Reason: Nausea/Vomiting Instructions: Opioid Withdrawal Referrals: Cesar Miguel MD [Primary Care Provider] - Forms: ED Department Discharge Additional Instructions: You were seen in the emergency room today for symptoms of withdrawing from Dilaudid, including cold sweats, inability to sleep, generalized pain, and nausea. You have been started on the pain medicine naproxen. Take one tablet every 12 hours, with food, as prescribed. You have been started on the anti-nausea medicine Zofran. Dissolve one tablet on your tongue up to every 8 hours, as needed for nausea/vomiting. You have been started on the anti-agitation medicine clonidine. Take one tablet every 12 hours as needed for anxiety/agitation/jitteriness. You have been prescribed the anti-anxiety medicine Valium. Take one tablet at bedtime to help you sleep. If you take this medicine, do not drive or operate heavy machinery for 12 hours after taking it. We STRONGLY recommend you followup at [facility] as soon as possible. If any other problems, please do not hesitate to return to the ER.
[2016-09-01 12:40] VITALS: BP 159/103
== END 2016-09-01 12:40 | disposition home or self-care (01) ==
LOC: JD.ED 11:03
DX: F11.23 Opioid dependence with withdrawal (principal); E78.00 Pure hypercholesterolemia, unspecified; F41.9 Anxiety disorder, unspecified; D50.9 Iron deficiency anemia, unspecified; Z85.72 Personal history of non-Hodgkin lymphomas; Z90.49 Acquired absence of other specified parts of digestive tract; Z90.710 Acquired absence of both cervix and uterus; Z98.890 Other specified postprocedural states; F17.210 Nicotine dependence, cigarettes, uncomplicated; Z79.82 Long term (current) use of aspirin; Z88.0 Allergy status to penicillin; Z88.1 Allergy status to other antibiotic agents
CPT/HCPCS: 99284; A9270; 99283